=== PATIENT | female | born 1990 | race Caucasian/White ===

== ENCOUNTER 2019-09-29 11:20 | Outpatient (CLI) | payer MEDICAID, SELFPAY ==
--- NOTE | 2019-09-29 11:28 | MR_ITS ---
WS: [id number] MRI LUMBAR SPINE NONCONTRAST TECHNIQUE: Sagittal T1, T2 and STIR imaging. Axial T1 and T2 imaging. CLINICAL INFORMATION: RADICULOPATHY LUMBOSACRAL REGION;L2 DISC REPLACEMENT;WEAKNES COMPARISON: None. FINDINGS: Mild lumbar curve. No acute compression. Prior postoperative changes L4-5 discectomy with fusion. Pool elvin laminectomy defects. L1-L2: Normal. L2-L3: No significant disc bulging. Mild facet arthropathy. Spinal canal and foramen are patent. L3-L4: No significant disc bulging. Mild facet arthropathy. Mild left L3-4 foraminal narrowing. Spina l canal and right foramen are patent. L4-L5: Postoperative changes discectomy with interbody fusion. Spinal canal and foramen are patent. L5-S1: Shallow left pericentral protrusion. No significant nerve root impingement. Spinal canal and f oramen are patent. Mild facet arthropathy. Visualized pelvic bony structures: Normal. Paravertebral soft tissues: Normal. MR/MR lumbar spine wo con* [id number] IMPRESSION: 1. Mild lumbar curve. No acute compression. No high-grade central canal stenos is. 2. Prior discectomy L4-5 with dorsal laminectomy defects. Spinal canal and for amen are patent at this level. 3. Tiny left pericentral protrusion L5-S1 without significant nerve root impin gement. 4. Mild left L3-4 foraminal narrowing. 5. Mild facet arthropathy L3-L4 and L5-S1.
== END 2019-09-29 11:21 | disposition home or self-care (01) ==
LOC: RADSHAW 11:26
PROVIDERS: PCP Nurse Practitioner; Visit Provider Nurse Practitioner
DX: R53.1 Weakness (principal); M54.17 Radiculopathy, lumbosacral region; M51.26 Other intervertebral disc displacement, lumbar region; M51.27 Other intervertebral disc displacement, lumbosacral region; M48.061 Spinal stenosis, lumbar region without neurogenic claudication; M47.817 Spondylosis without myelopathy or radiculopathy, lumbosacral region
CPT/HCPCS: 72148